=== PATIENT | male | born 1995 ===

== ENCOUNTER 2017-10-17 11:38 | Outpatient (CLI) | payer OTHER | END 2017-10-17 15:44 | disposition home or self-care (01) | LOC: MRI 11:38 | DX: R41.3 Other amnesia (principal) | CPT/HCPCS: 70551 ==

== ENCOUNTER 2019-02-27 14:43 | Emergency (ER) | payer OTHER ==
[~2019-02-27] VITALS: Ht 180.3 cm; Wt 108.9 kg
[2019-02-27] MEDS ORDERED: LAMICTAL5 MG (14:56)
[2019-02-27] MEDS ORDERED: MICARDIS40 MG PO (14:56)
[2019-02-27] MEDS ORDERED: [UNRECOGNIZED DRUG - OTHER] (14:56)
== END 2019-02-27 18:17 | disposition home or self-care (01) ==
LOC: ER 14:43
DX: R07.89 Other chest pain (principal); R51 Headache; M62.830 Muscle spasm of back; M54.2 Cervicalgia

== ENCOUNTER 2019-03-02 07:45 | Outpatient (CLI) | payer OTHER ==
[~2019-03-02 07:45] MED LIST: LAMICTAL5 MG; MICARDIS40 MG PO; [UNRECOGNIZED DRUG - OTHER]
== END 2019-03-02 11:32 | disposition home or self-care (01) ==
LOC: MRI 07:45
DX: M50.03 Cervical disc disorder with myelopathy, cervicothoracic region (principal)
CPT/HCPCS: 72141

== ENCOUNTER 2019-03-02 10:16 | Outpatient (CLI) | payer OTHER | END 2019-03-02 11:09 | disposition home or self-care (01) | LOC: NUCLEAR 10:16 | DX: R07.89 Other chest pain (principal) ==